=== PATIENT | male | born 1955 | race Caucasian/White ===

== ENCOUNTER 2022-05-08 16:01 | Outpatient (CLI) | payer MEDICARE, OTHER | END 2022-05-08 16:02 | disposition home or self-care (01) | LOC: LABBT 16:01 | PROVIDERS: ATTEND Ophthalmology Retina Specialist | DX: Z20.822 Contact with and (suspected) exposure to COVID-19 (principal) | CPT/HCPCS: 87811 ==

== ENCOUNTER 2022-05-13 06:28 | Day surgery (SDC) | payer MEDICARE, OTHER ==
[~2022-05-13 06:28] MED LIST: EPINEPHrine 0.3 MG in Ophthalmic Irrigation Solution 500 ML IRR SCH
[2022-05-13] MEDS ORDERED: fentaNYL Citrate/PF 100 MCG/2 ML SYRINGE ONE (06:39)
[2022-05-13] MEDS ORDERED: Midazolam HCl 2 mg/2 ml Vial ONE (06:39)
[2022-05-13] MEDS ORDERED: PROPOFOL 20 ML ONE (06:39)
[2022-05-13] MEDS ORDERED: Cyclopentolate 1% Opth Drop 2 ML BOT ONE (06:43)
[2022-05-13] MEDS ORDERED: Phenylephrine 2.5% Ophth Soln 5 ML BOT ONE (06:43)
[2022-05-13] MEDS ORDERED: Indocyanine Green 25 MG/10 ML VIAL ONE (08:21)
[2022-05-13] MEDS ORDERED: Bupivacaine 0.75% 10 ML VIAL ONE (08:21)
[2022-05-13] MEDS ORDERED: Lidocaine 4% PF 5 ML AMP ONE (08:21)
[2022-05-13] MEDS ORDERED: CEFAZOLIN 1 GM VIAL ONE (08:21)
[2022-05-13] MEDS ORDERED: Triamcinolone 40 MG/ML VIAL ONE (08:21)
[2022-05-13] MEDS ORDERED: Maxitrol 0.1% Opth Oint 3.5 GM TUBE ONE (08:21)
[2022-05-13] MEDS ORDERED: Lidocaine 1% PF 5 ML VIAL ONE (08:21)
== END 2022-05-13 09:35 | disposition home or self-care (01) ==
LOC: SDC 06:28
PROVIDERS: ATTEND Ophthalmology Retina Specialist
PROC: 08T43ZZ Resection of Right Vitreous, Percutaneous Approach (ICD-10-PCS; principal; 2022-05-13)
PROC: 08NE3ZZ Release Right Retina, Percutaneous Approach (ICD-10-PCS; 2022-05-13)
DX: H35.371 Puckering of macula, right eye (principal); E78.5 Hyperlipidemia, unspecified; G47.30 Sleep apnea, unspecified; G43.809 Other migraine, not intractable, without status migrainosus; Z79.899 Other long term (current) drug therapy; Z91.048 Other nonmedicinal substance allergy status
CPT/HCPCS: J0171; J0690; J2250; J2704; J3301; J3490

== ENCOUNTER 2023-03-30 12:30 | Outpatient (CLI) | payer MEDICARE, OTHER | END 2023-03-30 12:31 | disposition home or self-care (01) | LOC: SCSRAD 12:30 | PROVIDERS: ATTEND Nurse Practitioner Family | DX: J40 Bronchitis, not specified as acute or chronic (principal) | CPT/HCPCS: 71046 ==